=== PATIENT | male | born 1950 | race Caucasian/White ===

== ENCOUNTER 2017-02-22 10:14 | Emergency (ER) | payer OTHER ==
[2017-02-22 10:18] VITALS: BMI 27.8
[2017-02-22] MEDS ORDERED: ONDANSETRON 4 MG/2 ML VIAL IVPUSH ONE (10:45)
[2017-02-22] MEDS ORDERED: ONDANSETRON 4 MG/2 ML VIAL ONE (10:50)
--- NOTE | 2017-02-22 11:06 | PDOC ---
*Physical Exam - Vital Signs Last Vital Signs Temp Pulse Resp BP Pulse Ox 98.0 F 73 20 148/88 98 02/22/17 10:15 02/22/17 10:15 02/22/17 10:15 02/22/17 10:15 02/22/17 10:15 ED Treatment Course - LABORATORY CBC & Chemistry Diagram: 02/22/17 10:25 02/22/17 10:25 - Medications Given in the ED: ED Medications Discontinued Medications Generic Name Dose Route Start Last Admin Trade Name Freq PRN Reason Stop Dose Admin Ondansetron HCl 4 mg 02/22/17 10:45 02/22/17 11:01 Zofran Injection IVPUSH 02/22/17 10:46 4 mg ONCE ONE Administration Medical Decision Making - Medical Decision Making 02/22/17 11:06 Pt seen by the Advanced Practice Provider under my direct supervision Ancillary studies reviewed I agree with plan as outlined by the Advanced Practice Provider JAYE Mace *DC/Admit/Observation/Transfer Diagnosis at time of Disposition: Diverticulitis - Discharge Dispostion Disposition: HOME Condition at time of disposition: Stable - Prescriptions Prescriptions: Levofloxacin [Levaquin] 750 mg PO DAILY #7 tab Metronidazole [Flagyl -] 500 mg PO Q8H #21 tablet Oxycodone HCl/Acetaminophen [Percocet 5-325 mg Tablet] 1 tab PO Q6H PRN #20 tablet MDD 4 tabs PRN Reason: Pain - Referrals Referrals: Tiburcio Juarez MD [Primary Care Provider] - 3 days - Patient Instructions Printed Discharge Instructions: DI for Diverticulitis Additional Instructions: -Take antibiotics as prescribed and pain medications if needed -Drink clear liquids today, add other liquids/soups tomorrow, then advance to a bland diet the following day (nothing spicy or greasy) -Follow up with Dr. Palacios next week -Return here with worsening abdominal pain or any other concerning symptoms - Post Discharge Activity
[2017-02-22 11:09] LABS: BASO % 0.4 % (0-2.0); EOS % 2.9 % (0-4.5); HEMATOCRIT 46.6 % (35.4-49); HEMOGLOBIN 15.3 GM/dL (11.7-16.9); LYMPH % 21.9 % (8-40); MCH 29.9 pg (25.7-33.7); MCHC 32.8 g/dl (32.0-35.9); MEAN CELL VOLUME 91.2 fl (80-96); MEAN PLT VOLUME 8.3 fl (7.5-11.1); MONO % 7.1 % (3.8-10.2); NEUT % 67.7 % (42.8-82.8); PLATELET COUNT 245 K/MM3 (134-434); RBC 5.11 M/mm3 (4.00-5.60); RDW 13.4 % (11.9-15.9); WHITE BLOOD COUNT 7.9 K/mm3 (4.0-10.0)
--- NOTE | 2017-02-22 11:16 | PDOC ---
History of Present Illness - General Chief Complaint: Pain Stated Complaint: LOWER PELVIC PAIN Time Seen by Provider: 02/22/17 10:29 - History of Present Illness Initial Comments: 02/22/17 11:17 CHIEF COMPLAINT: Lower abdominal pain HISTORY OF PRESENT ILLNESS: This is a 66 year old male with a history of HTN, HLD, "prostate problems", and one recent hospitalization (about 2 months ago) at [facility] for diverticulitis. He has had only this one episode of diverticulitis. He recalls being discharged on 2 antibiotics after that stay, but does not recall what they were or exactly when he completed them. Today, he reports 3 days of worsening, intermittent lower abdominal pain that seems to be worse on the left side. He notes burning on urination. He feels that his belly is distended. He has been having daily bowel movements, but notes that they have been smaller than usual. He denies nausea/vomiting, fevers/ chills, hematochezia, or any other symptoms. Vital signs on arrival are unremarkable PCP: Dr. Tiburcio Palacios REVIEW OF SYSTEMS: GENERAL/CONSTITUTIONAL: No fever or chills. No weakness. No weight change. HEAD, EYES, EARS, NOSE AND THROAT: No change in vision. No ear pain or discharge. No sore throat. CARDIOVASCULAR: No chest pain or palpitations. RESPIRATORY: No cough, wheezing, or shortness of breath. GASTROINTESTINAL: See HPI. GENITOURINARY: Dysuria/burning on urination. MUSCULOSKELETAL: No joint or muscle swelling or pain. No neck or back pain. SKIN: No rash or easy bruising. NEUROLOGIC: No headache, vertigo, loss of consciousness, or loss of sensation. PSYCHIATRIC: No depression or anxiety. ENDOCRINE: No increased thirst. No abnormal weight change. HEMATOLOGIC/LYMPHATIC: No anemia, easy bleeding, or history of blood clots. ALLERGIC/IMMUNOLOGIC: No hives or skin allergy. No latex allergy. PHYSICAL EXAM: GENERAL: The patient is awake, alert, and fully oriented, in no acute distress. HEAD: Normal with no signs of trauma. ENT: Pupils equal, round and reactive to light, extraocular movements intact, sclera anicteric, conjunctiva clear. Neck supple. LUNGS: Clear to auscultation bilaterally. Normal excursion. No respiratory distress or use of accessory muscles. CV: RRR, S1/S2, no MRG. Cap refill < 2 sec. ABDOMEN: Softly distended, tender to gentle palpation in LLQ. EXTREMITIES: Normal range of motion, no edema. NEUROLOGICAL: Normal speech, normal gait. CN II-XII grossly intact. PSYCH: Normal mood, normal affect. SKIN: Warm, dry, normal turgor, no rashes or lesions noted. Past History - Past Medical History Allergies/Adverse Reactions: Allergies Allergy/AdvReac Type Severity Reaction Status Date / Time No Known Allergies Allergy Verified 02/22/17 10:17 Home Medications: Ambulatory Orders Amlodipine Besylate [Norvasc -] 5 mg PO DAILY 02/06/14 Valsartan [Diovan] 160 mg PO DAILY 02/06/14 Rosuvastatin Calcium [Crestor] 10 mg PO DAILY 11/24/14 Finasteride 5 mg PO DAILY 02/22/17 Levofloxacin [Levaquin] 750 mg PO DAILY #7 tab 02/22/17 Metronidazole [Flagyl -] 500 mg PO Q8H #21 tablet 02/22/17 Oxycodone HCl/Acetaminophen [Percocet 5-325 mg Tablet] 1 tab PO Q6H PRN #20 tablet MDD 4 tabs 02/22/17 Tamsulosin HCl [Flomax] 0.4 mg PO DAILY 02/22/17 COPD: No GI Disorders: Yes (BPH, DIVERTICULITIS) HTN: Yes Hypercholesterolemia: Yes - Immunization History Immunization Up to Date: Yes - Suicide/Smoking/Psychosocial Hx Smoking History: Current every day smoker Have you smoked in the past 12 months: Yes Number of Cigarettes Smoked Daily: 5 Information on smoking cessation initiated: No 'Breaking Loose' booklet given: 02/06/14 Hx Alcohol Use: No Drug/Substance Use Hx: No Substance Use Type: None Hx Substance Use Treatment: No *Physical Exam - Vital Signs Last Vital Signs Temp Pulse Resp BP Pulse Ox 98.0 F 73 20 148/88 98 02/22/17 10:15 02/22/17 10:15 02/22/17 10:15 02/22/17 10:15 02/22/17 10:15 ED Treatment Course - LABORATORY CBC & Chemistry Diagram: 02/22/17 10:25 02/22/17 10:25 - RADIOLOGY Radiology Studies Ordered: Category Date Time Status ABDOMEN & PELVIS CT WITH CONTR [CT] Stat CT Scan 02/22/17 10:45 Ordered - Medications Given in the ED: ED Medications Discontinued Medications Generic Name Dose Route Start Last Admin Trade Name Hector PRN Reason Stop Dose Admin Ondansetron HCl 4 mg 02/22/17 10:45 02/22/17 11:01 Zofran Injection IVPUSH 02/22/17 10:46 4 mg ONCE ONE Administration Medical Decision Making - Medical Decision Making 02/22/17 11:21 A/P: 66 year old male with history of diverticulitis presenting with 3 days of LLQ pain and dysuria. Differential includes but is not limited to recurrent diverticulitis, UTI/pyelonephritis. 1. Labs including CBC, CMP, lipase, UA/culture 2. CTAP with PO/IV contrast 3. Patient declines analgesia 02/22/17 11:48 WBC within normal limits at 7.9 Chemistry, LFTs, lipase unremarkable. 02/22/17 15:37 CT reviewed: extensive diverticulosis with focal diverticulitis of the descending colon. No abscess or perforation. Tolerating po well. Will give one dose oral antibiotics and discharge with PO. Followup instructions and return precautions reviewed. *DC/Admit/Observation/Transfer Diagnosis at time of Disposition: Diverticulitis Qualifiers: Diverticulitis site: large intestine Diverticulitis bleeding: without bleeding Diverticulitis complication: without perforation or abscess Qualified Code(s): K57.32 - Diverticulitis of large intestine without perforation or abscess without bleeding - Discharge Dispostion Disposition: HOME Condition at time of disposition: Stable Admit: No - Prescriptions Prescriptions: Levofloxacin [Levaquin] 750 mg PO DAILY #7 tab Metronidazole [Flagyl -] 500 mg PO Q8H #21 tablet Oxycodone HCl/Acetaminophen [Percocet 5-325 mg Tablet] 1 tab PO Q6H PRN #20 tablet MDD 4 tabs PRN Reason: Pain - Referrals Referrals: Tiburcio Juarez MD [Primary Care Provider] - 3 days - Patient Instructions Printed Discharge Instructions: DI for Diverticulitis Additional Instructions: -Take antibiotics as prescribed and pain medications if needed -Drink clear liquids today, add other liquids/soups tomorrow, then advance to a bland diet the following day (nothing spicy or greasy) -Follow up with Dr. Palacios next week -Return here with worsening abdominal pain or any other concerning symptoms - Post Discharge Activity
[2017-02-22 11:23] LABS: ALBUMIN 3.6 g/dl (3.4-5.0); ALK PHOS 95 U/L (45-117); ANION GAP 9 (8-16); BILIRUBIN,TOTAL 0.4 mg/dL (0.2-1.0); BLOOD UREA NITROGEN 11 mg/dL (7-18); CALCIUM 8.6 mg/dL (8.5-10.1); CHLORIDE 105 mmol/L (98-107); CO2 25 mmol/L (21-32); CREATININE 0.7 mg/dL (0.7-1.3); GLUCOSE,RANDOM 106 mg/dL (74-106); LIPASE 185 U/L (73-393); POTASSIUM 3.8 mmol/L (3.5-5.1); SGOT/AST 14 U/L (15-37); SGPT/ALT 29 U/L (12-78); SODIUM 139 mmol/L (136-145); TOT PROT 7.2 g/dl (6.4-8.2)
[2017-02-22 12:02] LABS: URINE APPEARANCE CLEAR; URINE BILIRUBIN NEGATIVE (NEGATIVE); URINE BLOOD NEGATIVE (NEGATIVE); URINE COLOR STRAW; URINE GLUCOSE (UA) NEGATIVE (NEGATIVE); URINE KETONE NEGATIVE (NEGATIVE); URINE LEUK ESTERASE NEGATIVE (NEGATIVE); URINE NITRITE NEGATIVE (NEGATIVE); URINE PROTEIN NEGATIVE (NEGATIVE); URINE UROBILINOGEN NEGATIVE mg/dL (0.2-1.0)
[2017-02-22 14:50] VITALS: PULSE 62
[2017-02-22] MEDS ORDERED: LEVOFLOXACIN 750 MG IVPB 750 MG/150 ML BAG IVPB ONE ×2 (15:16→15:21)
[2017-02-22] MEDS ORDERED: METRONIDAZOLE 500 MG PREMIXED 500 MG/100 ML MG IVPB ONE ×2 (15:16→15:21)
[2017-02-22 17:13] VITALS: BP 135/85; TEMP 97.4
== END 2017-02-22 17:36 | disposition home or self-care (01) ==
LOC: JER 10:14
PROC: 3E03329 Introduction of Other Anti-infective into Peripheral Vein, Percutaneous Approach (ICD-10-PCS; principal; 2017-02-22)
PROC: 3E03329 Introduction of Other Anti-infective into Peripheral Vein, Percutaneous Approach (ICD-10-PCS; 2017-02-22)
PROC: 3E033GC Introduction of Other Therapeutic Substance into Peripheral Vein, Percutaneous Approach (ICD-10-PCS; 2017-02-22)
DX: K57.32 Diverticulitis of large intestine without perforation or abscess without bleeding (principal); I10 Essential (primary) hypertension; E78.00 Pure hypercholesterolemia, unspecified; N40.0 Benign prostatic hyperplasia without lower urinary tract symptoms; F17.210 Nicotine dependence, cigarettes, uncomplicated
CPT/HCPCS: 36415; 74177-TC; 80053; 81003; 83690; 85025; 87086; 99284-25

== ENCOUNTER 2017-12-13 23:40 | Emergency (ER) | payer OTHER ==
[2017-12-14 00:31] VITALS: BMI 28.3
--- NOTE | 2017-12-14 00:49 | PDOC ---
History of Present Illness - History of Present Illness Initial Comments: 12/14/17 01:50 The patient is a 66 year old male with past medical history of hypertension, hyperlipidemia, BPH, and diverticulitis (diagnosed 02/22/17, treated with abx) who presents to the ED with complaints of left lower quadrant pain for the past four days. The patient reports an intermittent 4/10 churning pain in his LLQ which is worse with sitting and relieved by lying flat/standing. He also reports that for the past two days, dairy has been making it worse. He reports normal appetite and regular bowel movements, making about 3 today. Denies any nausea, vomiting, diarrhea. Denies dysuria, frequency, hematuria. Denies fevers or chills. Denies CP, SOB, weinstein, focal weakness/numbness. No recent travel. <Tashia Rodriguez - Last Filed: 12/14/17 01:50> <Melody Maher - Last Filed: 12/14/17 05:06> - General Chief Complaint: Pain Stated Complaint: PAIN, ACUTE Time Seen by Provider: 12/14/17 00:22 Past History - Past Medical History COPD: No GI Disorders: Yes (BPH, DIVERTICULITIS) HTN: Yes Hypercholesterolemia: Yes - Immunization History Immunization Up to Date: Yes - Suicide/Smoking/Psychosocial Hx Smoking History: Never smoked Have you smoked in the past 12 months: No Number of Cigarettes Smoked Daily: 5 Information on smoking cessation initiated: No 'Breaking Loose' booklet given: 02/06/14 Hx Alcohol Use: No Drug/Substance Use Hx: No Substance Use Type: None Hx Substance Use Treatment: No <Tashia Rodriguez - Last Filed: 12/14/17 01:50> <Melody Maher - Last Filed: 12/14/17 05:06> - Past Medical History Allergies/Adverse Reactions: Allergies Allergy/AdvReac Type Severity Reaction Status Date / Time No Known Allergies Allergy Verified 12/14/17 00:29 Home Medications: Ambulatory Orders Amlodipine Besylate [Norvasc -] 5 mg PO DAILY 02/06/14 Valsartan [Diovan] 160 mg PO DAILY 02/06/14 Rosuvastatin Calcium [Crestor] 10 mg PO DAILY 11/24/14 Finasteride 5 mg PO DAILY 02/22/17 Oxycodone HCl/Acetaminophen [Percocet 5-325 mg Tablet] 1 tab PO Q6H PRN #20 tablet MDD 4 tabs 02/22/17 Tamsulosin HCl [Flomax] 0.4 mg PO DAILY 02/22/17 levoFLOXacin [Levaquin] 750 mg PO DAILY #7 tab 02/22/17 metroNIDAZOLE [Flagyl -] 500 mg PO Q8H #21 tablet 02/22/17 Review of Systems - Review of Systems Comments:: 12/14/17 01:51 GENERAL/CONSTITUTIONAL: No fever or chills. No weakness. HEAD, EYES, EARS, NOSE AND THROAT: No change in vision. No ear pain or discharge. No sore throat. GASTROINTESTINAL: (+) LLQ pain. No nausea, vomiting, diarrhea or constipation. GENITOURINARY: No dysuria, frequency, or change in urination. CARDIOVASCULAR: No chest pain or shortness of breath. RESPIRATORY: No cough, wheezing, or hemoptysis. MUSCULOSKELETAL: No joint or muscle swelling or pain. No neck or back pain. SKIN: No rash NEUROLOGIC: No headache, vertigo, loss of consciousness, or change in strength/ sensation. ENDOCRINE: No increased thirst. No abnormal weight change. HEMATOLOGIC/LYMPHATIC: No anemia, easy bleeding, or history of blood clots. ALLERGIC/IMMUNOLOGIC: No hives or skin allergy. <Nassef,Yomna - Last Filed: 12/14/17 01:50> *Physical Exam - Vital Signs Last Vital Signs Temp Pulse Resp BP Pulse Ox 98.4 F 70 20 155/84 96 12/14/17 00:30 12/14/17 00:30 12/14/17 00:30 12/14/17 00:30 12/14/17 00:30 - Physical Exam Comments: 12/14/17 01:51 GENERAL: Awake, alert, and fully oriented, in no acute distress HEAD: No signs of trauma EYES: PERRLA, EOMI, sclera anicteric, conjunctiva clear ENT: Auricles normal inspection, hearing grossly normal, nares patent, oropharynx clear without exudates. Moist mucosa NECK: Normal ROM, supple, no lymphadenopathy, JVD, or masses LUNGS: Breath sounds equal, clear to auscultation bilaterally. No wheezes, and no crackles HEART: Regular rate and rhythm, normal S1 and S2, no murmurs, rubs or gallops ABDOMEN: Soft, +LLQ ttp, normoactive bowel sounds. No guarding, no rebound. No distention. No masses EXTREMITIES: Normal range of motion, no edema. No clubbing or cyanosis. No cords, erythema, or tenderness NEUROLOGICAL: Normal speech, cranial nerves intact, negative pronator drift, 5/ 5 strength in all 4 extremities, normal sensation to light touch in all 4 extremities, normal cerebellar exam, normal gait, normal reflexes and tone SKIN: Warm, Dry, normal turgor, no rashes or lesions noted. <Tashia Rodriguez - Last Filed: 12/14/17 01:50> - Vital Signs Last Vital Signs Temp Pulse Resp BP Pulse Ox 98.4 F 70 20 155/84 96 12/14/17 00:30 12/14/17 00:30 12/14/17 00:30 12/14/17 00:30 12/14/17 00:30 <Melody Maher - Last Filed: 12/14/17 05:06> Heart Score/ECG Review #1 12/14/17 01:52 Twelve-lead EKG was performed and reviewed by me. Normal sinus rhythm, rate 65. Normal axis and intervals. No ST elevations or T-wave inversions. <Tashia Rodriguez - Last Filed: 12/14/17 01:50> ED Treatment Course - LABORATORY CBC & Chemistry Diagram: 12/14/17 01:30 12/14/17 01:30 <Tashia Rodriguez - Last Filed: 12/14/17 01:50> - LABORATORY CBC & Chemistry Diagram: 12/14/17 01:30 12/14/17 01:30 - ADDITIONAL ORDERS Additional order review: Laboratory Results 12/14/17 12/14/17 12/14/17 01:45 01:30 01:30 PT with INR INR PTT (Actin FS) Sodium 142 Potassium 3.7 Chloride 107 Carbon Dioxide 28 Anion Gap 7 L BUN 15 Creatinine 0.9 Creat Clearance w eGFR > 60 Random Glucose 98 Calcium 8.7 Magnesium 2.3 Total Bilirubin 0.3 AST 17 ALT 27 Alkaline Phosphatase 89 Total Protein 7.1 Albumin 3.7 Urine Color Yellow Urine Appearance Clear Urine pH 6.0 Ur Specific [place] 1.020 Urine Protein 1+ H Urine Glucose (UA) Negative Urine Ketones Negative Urine Blood Negative Urine Nitrite Negative Urine Bilirubin Negative Urine Urobilinogen Negative Ur Leukocyte Esterase Negative Urine WBC (Auto) <1 Urine RBC (Auto) 3 Ur Epithelial Cells Rare Urine Mucus Few Blood Type A POSITIVE Antibody Screen Negative 12/14/17 01:30 PT with INR 11.20 INR 0.95 PTT (Actin FS) 29.9 Sodium Potassium Chloride Carbon Dioxide Anion Gap BUN Creatinine Creat Clearance w eGFR Random Glucose Calcium Magnesium Total Bilirubin AST ALT Alkaline Phosphatase Total Protein Albumin Urine Color Urine Appearance Urine pH Ur Specific [place] Urine Protein Urine Glucose (UA) Urine Ketones Urine Blood Urine Nitrite Urine Bilirubin Urine Urobilinogen Ur Leukocyte Esterase Urine WBC (Auto) Urine RBC (Auto) Ur Epithelial Cells Urine Mucus Blood Type Antibody Screen 12/14/17 01:30 RBC 4.74 MCV 91.1 MCHC 33.3 RDW 14.0 MPV 8.7 Neutrophils % 53.1 D Lymphocytes % 30.8 D Monocytes % 9.7 Eosinophils % 6.0 H D Basophils % 0.4 - Medications Given in the ED: ED Medications Discontinued Medications Generic Name Dose Route Start Last Admin Trade Name Hector PRN Reason Stop Dose Admin Acetaminophen 1,000 mg 12/14/17 00:55 12/14/17 02:23 Ofirmev Injection - IVPB 12/14/17 00:56 1,000 mg ONCE ONE Administration <Melody Maher - Last Filed: 12/14/17 05:06> Medical Decision Making - Medical Decision Making 12/14/17 01:10 66-year-old male with multiple medical problems including diverticulitis treated as an outpatient presents the emergency department with 4 days of left lower quadrant pain. Exam with left lower quadrant tenderness to palpation, but no rebound, guarding or peritoneal signs. Concern for recurrent diverticulitis. Also on differential is colitis versus UTI. We'll check labs, urinalysis, CT scan of the abdomen and pelvis, treat pain and reassess. 12/14/17 01:52 Labs, UA, CTAP pending. Signed out to overnight attending for f/u on diagnostics and dispo. <Tashia Rodriguez - Last Filed: 12/14/17 01:50> - Medical Decision Making 12/14/17 05:04 Patient Name: SHILOH GREWAL THIS IS A PRELIMINARY REPORT FROM [facility] DATE OF SERVICE: 2017-12-14 03:35:17 IMAGES: [id number] EXAM: CT ABDOMEN AND PELVIS WITH CONTRAST No bowel obstruction, colitis, free fluid or free air. Normal appendix. Diverticulosis without acute diverticulitis. Unremarkable pancreas and gallbladder. Punctate stone left kidney. Subcentimeter cortical hypodensities right kidney. Surgical clips right inguinal soft tissues. Small right Bochdalek hernia containing fat. <Melody Maher - Last Filed: 12/14/17 05:06> *DC/Admit/Observation/Transfer <Tashia Rodriguez - Last Filed: 12/14/17 01:50> - Discharge Dispostion Decision to Admit order: No <Melody Maher - Last Filed: 12/14/17 05:06> Diagnosis at time of Disposition: Bochdalek hernia - Discharge Dispostion Disposition: HOME Condition at time of disposition: Stable - Referrals Referrals: Tiburcio Juarez MD [Primary Care Provider] - - Patient Instructions Printed Discharge Instructions: Diaphragmatic Hernia
[2017-12-14] MEDS ORDERED: ACETAMINOPHEN 1000 MG/100 ML VIAL (NON FORMULARY) IVPB ONE (00:55)
[2017-12-14 01:56] LABS: URINE APPEARANCE CLEAR; URINE BILIRUBIN NEGATIVE (<2.0 mg/dL); URINE COLOR YELLOW; URINE GLUCOSE (UA) NEGATIVE (NEGATIVE); URINE KETONE NEGATIVE (NEGATIVE); URINE LEUK ESTERASE NEGATIVE (NEGATIVE); URINE NITRITE NEGATIVE (NEGATIVE); URINE PROTEIN 1+ (NEGATIVE); URINE UROBILINOGEN NEGATIVE mg/dL (0.2-1.0)
[2017-12-14 01:57] LABS: BASO % 0.4 % (0-2.0); HEMATOCRIT 43.2 % (35.4-49); HEMOGLOBIN 14.4 GM/dL (11.7-16.9); LYMPH % 30.8 % (8-40); MCH 30.3 pg (25.7-33.7); MCHC 33.3 g/dl (32.0-35.9); MEAN CELL VOLUME 91.1 fl (80-96); MEAN PLT VOLUME 8.7 fl (7.5-11.1); MONO % 9.7 % (3.8-10.2); NEUT % 53.1 % (42.8-82.8); PLATELET COUNT 241 K/MM3 (134-434); RBC 4.74 M/mm3 (4.00-5.60); WHITE BLOOD COUNT 6.6 K/mm3 (4.0-10.0)
[2017-12-14 02:13] LABS: EPI CELLS RARE /HPF (FEW); URINE MUCUS FEW
[2017-12-14 02:18] LABS: INR 0.95 (0.83-1.09); PROTHROMBIN TIME (PATIENT) 11.2 SEC (9.7-13.0)
[2017-12-14 02:21] LABS: ACTIVATED PTT 29.9 SECONDS (25.2-36.5)
[2017-12-14 02:30] LABS: ALBUMIN 3.7 g/dl (3.4-5.0); ALK PHOS 89 U/L (45-117); ANION GAP 7 MMOL/L (8-16); BILIRUBIN,TOTAL 0.3 mg/dL (0.2-1); BLOOD UREA NITROGEN 15 mg/dL (7-18); CALCIUM 8.7 mg/dL (8.5-10.1); CHLORIDE 107 mmol/L (98-107); CO2 28 mmol/L (21-32); CREATININE 0.9 mg/dL (0.55-1.3); GLUCOSE,RANDOM 98 mg/dL (74-106); MAGNESIUM 2.3 mg/dL (1.8-2.4); POTASSIUM 3.7 mmol/L (3.5-5.1); SGOT/AST 17 U/L (15-37); SGPT/ALT 27 U/L (13-61); SODIUM 142 mmol/L (136-145); TOT PROT 7.1 g/dl (6.4-8.2)
[2017-12-14 05:16] VITALS: BP 133/71; PULSE 75; TEMP 99.2
--- NOTE | 2017-12-14 11:08 | EKG ---
Test Reason : Blood Pressure : / mmHG Vent. Rate : 065 BPM Atrial Rate : 065 BPM P-R Int : 148 ms QRS Dur : 088 ms QT Int : 392 ms P-R-T Axes : 018 -01 051 degrees QTc Int : 407 ms NORMAL SINUS RHYTHM NORMAL ECG WHEN COMPARED WITH ECG OF 05-FEB-2014 23:59, NO SIGNIFICANT CHANGE WAS FOUND Confirmed by ALFONZO MCDONALD MD ([id number]) on 12/14/2017 11:08:33 AM Referred By: Confirmed By:ALFONZO MCDONALD MD
== END 2017-12-14 05:16 | disposition home or self-care (01) ==
LOC: JER 23:40
PROC: 3E033NZ Introduction of Analgesics, Hypnotics, Sedatives into Peripheral Vein, Percutaneous Approach (ICD-10-PCS; principal; 2017-12-13)
DX: Q79.0 Congenital diaphragmatic hernia (principal); I10 Essential (primary) hypertension; E78.00 Pure hypercholesterolemia, unspecified; N40.0 Benign prostatic hyperplasia without lower urinary tract symptoms; Z87.19 Personal history of other diseases of the digestive system
CPT/HCPCS: 36415; 74177-TC; 80053; 81003; 81015; 83735; 85025; 85610; 85730; 86850; 86900; 86901; 87086; 93005; 93010; 96374; 99282-25; J0131

== ENCOUNTER 2020-08-08 12:51 | Observation (INO) | payer OTHER ==
[2020-08-08 14:18] LABS: BASO % 0.6 % (0-2.0); EOS % 5.6 % (0-4.5); HEMOGLOBIN 14.6 GM/dL (11.7-16.9); LYMPH % 22.5 % (8-40); MCHC 33.9 g/dl (32.0-35.9); MEAN CELL VOLUME 91.3 fl (80-96); MEAN PLT VOLUME 8.4 fl (7.5-11.1); MONO % 8.8 % (3.8-10.2); NEUT % 62.5 % (42.8-82.8); PLATELET COUNT 227 10^3/uL (134-434); RDW 13.8 % (11.9-15.9); WHITE BLOOD COUNT 6.8 K/mm3 (4.0-10.0)
[2020-08-08 14:25] LABS: INR 1.23 (0.83-1.09)
[2020-08-08 14:27] LABS: ACTIVATED PTT 36.2 SECONDS (25.2-36.5)
[2020-08-08 14:40] LABS: CHLORIDE 106 mmol/L (98-107); SODIUM 141 mmol/L (136-145)
[2020-08-08 14:42] LABS: CALCIUM 9.6 mg/dL (8.5-10.1)
[2020-08-08 14:43] LABS: ALBUMIN 4.1 g/dl (3.4-5.0); ANION GAP 6 MMOL/L (8-16); BLOOD UREA NITROGEN 11.7 mg/dL (7-18); CO2 30 mmol/L (21-32)
[2020-08-08 14:46] LABS: SGOT/AST 15 U/L (15-37); SGPT/ALT 25 U/L (13-61)
[2020-08-08 14:47] LABS: BILIRUBIN,TOTAL 0.4 mg/dL (0.2-1); TOT PROT 7.5 g/dl (6.4-8.2)
[2020-08-08 14:48] LABS: ALK PHOS 86 U/L (45-117)
[2020-08-08 14:59] LABS: CREATININE 0.8 mg/dL (0.55-1.3); GLUCOSE,RANDOM 98 mg/dL (74-106)
[2020-08-08] MEDS ORDERED: LOSARTAN POTASSIUM 50 MG TABLET PO ONE ×2 (19:03→19:59)
[2020-08-08] MEDS ORDERED: LOSARTAN POTASSIUM 50 MG TABLET ONE (19:16)
[2020-08-09 01:52] VITALS: BMI 23.3
[2020-08-09 07:23] LABS: BASO % 0.3 % (0-2.0); EOS % 5.2 % (0-4.5); HEMOGLOBIN 13.7 GM/dL (11.7-16.9); LYMPH % 23.8 % (8-40); MCH 31.3 pg (25.7-33.7); MCHC 34.3 g/dl (32.0-35.9); MEAN PLT VOLUME 8.8 fl (7.5-11.1); NEUT % 61.7 % (42.8-82.8); PLATELET COUNT 209 10^3/uL (134-434); RDW 13.5 % (11.9-15.9); WHITE BLOOD COUNT 7.5 K/mm3 (4.0-10.0)
[2020-08-09] MEDS: TAMSULOSIN HCL 0.4 MG CAP PO SCH (07:48)
[2020-08-09 07:51] LABS: CALCIUM 8.7 mg/dL (8.5-10.1)
[2020-08-09 07:52] LABS: BLOOD UREA NITROGEN 16.8 mg/dL (7-18); MAGNESIUM 2.1 mg/dL (1.8-2.4)
[2020-08-09 07:55] LABS: CREATININE 0.8 mg/dL (0.55-1.3)
[2020-08-09] MEDS: PANTOPRAZOLE 40 MG TABLET PO SCH (09:14)
[2020-08-09] MEDS ORDERED: LOSARTAN POTASSIUM 50 MG TABLET PO SCH (10:00)
[2020-08-09] MEDS ORDERED: amLODIPine BESYLATE 5 MG TABLET (FP) PO SCH (10:00)
[2020-08-09] MEDS ORDERED: metoPROLOL SUCCINATE 25 MG TAB.SR.24H (FP) PO SCH (10:00)
[2020-08-09] MEDS ORDERED: LOSARTAN POTASSIUM 50 MG TABLET PO ONE (13:01)
[2020-08-09 13:17] LABS: N-TERMINAL BNP 132.6 pg/ml (5-125)
[2020-08-09] MEDS ORDERED: RIVAROXABAN 20 MG TABLET PO SCH (18:00)
[2020-08-09] MEDS ORDERED: ROSUVASTATIN CA 10 MG TABLET (FP) PO SCH (22:00)
[2020-08-10] MEDS: TAMSULOSIN HCL 0.4 MG CAP PO SCH (08:22)
[2020-08-10] MEDS ORDERED: amLODIPine BESYLATE 5 MG TABLET (FP) PO SCH (08:23)
[2020-08-10] MEDS: LOSARTAN POTASSIUM 50 MG TABLET PO SCH ×2 (08:24→11:25)
[2020-08-10] MEDS: amLODIPine BESYLATE 5 MG TABLET (FP) PO SCH ×2 (08:24→11:25)
[2020-08-10 08:53] VITALS: TEMP 97.7
[2020-08-10] MEDS ORDERED: metoPROLOL SUCCINATE 25 MG TAB.SR.24H (FP) PO SCH (10:00)
[2020-08-10] MEDS ORDERED: REGADENOSON 0.4 MG/5 ML PRE-FILLED SYRINGE IVPUSH ONE ×2 (12:55→13:15)
[2020-08-10] MEDS: PANTOPRAZOLE 40 MG TABLET PO SCH (14:08)
[2020-08-10 14:19] VITALS: BP 136/70; PULSE 68
== END 2020-08-10 15:51 | disposition home or self-care (01) ==
LOC: JER 12:51 → JERBED 14:13 → J4W 21:45
PROVIDERS: ATTEND Family Medicine
DX: I48.91 Unspecified atrial fibrillation (principal); I11.0 Hypertensive heart disease with heart failure; I50.32 Chronic diastolic (congestive) heart failure; E78.00 Pure hypercholesterolemia, unspecified; N40.0 Benign prostatic hyperplasia without lower urinary tract symptoms; K57.30 Diverticulosis of large intestine without perforation or abscess without bleeding; K62.5 Hemorrhage of anus and rectum; R30.0 Dysuria; F17.210 Nicotine dependence, cigarettes, uncomplicated; Z79.01 Long term (current) use of anticoagulants
CPT/HCPCS: 36415; 71046-TC-FY; 78452-TC; 80048; 80053; 80061; 82550; 83721; 83735; 83880; 84443; 84484; 85025; 85610; 85730; 86850; 86900; 86901; 93005; 93010; 93017; 93306-TC; 99285-25; A9502; C9803; G0378; J2785; U0003; U0005